=== PATIENT | male | born 1985 | race Caucasian/White ===

== ENCOUNTER 2025-03-14 08:26 | Emergency (ER) | payer SELFPAY ==
[2025-03-14 08:31] VITALS: BP 178/102; PULSE 85; RESP 16; TEMP 36.5; O2SAT 96; BMI 32.4
[2025-03-14 09:38] VITALS: BP 169/105; PULSE 80; RESP 16; O2SAT 97
--- NOTE | 2025-03-14 09:57 | ECG_ITS ---
Test Reason : lightheaded Blood Pressure : */* mmHG Vent. Rate : 79 BPM Atrial Rate : 79 BPM P-R Int : 178 ms QRS Dur : 102 ms QT Int : 366 ms P-R-T Axes : 39 22 38 degrees QTcB Int : 419 ms Normal sinus rhythm Nonspecific ST and T wave abnormality Abnormal ECG No previous ECGs available Referred By: Samir Díaz Electronically Signed By: TESHA MANCINI
--- OUTSIDE RECORDS SUMMARY | 2025-03-14 09:59 | XMS_ITS | Clinical Summary ---
Author Organization [employer] [facility] Address [address] [place] [address] Care Team Providers Care Interactive Media Marketing Strategist Name Role Phone Physician, No Pcp Primary Care Provider Unavaila ble Social History Tobacco Use Types Packs/Day Years Used Date Smoking Tobacco: Never Assessed Sex and Gender Information Value Date Recorded Sex Assigned at Not on file Legal Sex Male 7:41 PM EDT Gender Identity Not on file Sexual Orientation Not on file Plan of Treatment Health Maintenance Due Date Last Done Comments DTaP,Tdap,and Td Vaccines (1 - Tdap) 2004 Hepatitis B Vaccines (1 of 3 - 19+ 3-dose series) 2004 COVID-19 Vaccine (2023-2 5 season) 2024 Cholesterol Screening (Lipid Panel) 06/12/2024 HIV Screening 06/12/2024 Hepatitis C Screening 06/12/2024 Social Influencers of Health Screening 06/12/2024 Depression Screening 08/11/2024 Influenza Vaccine (#1) 2025 HIB Vaccines Aged Out No longer eligi ble based on patient's age to complete this topic HPV Vaccines Aged Out No longer eligi ble based on patient's age to complete this topic Hepatitis A Vaccines Aged Out No long er eligible based on patient's age to complete this topic IPV Vaccines Aged Out No longer eligi ble based on patient's age to complete this topic MMR Vaccines Aged Out No longer eligi ble based on patient's age to complete this topic Meningococcal ACWY Vaccine Aged Out N o longer eligible based on patient's age to complete this topic Meningococcal B Vaccine Aged Out No l onger eligible based on patient's age to complete this topic Pneumococcal Vaccine: Pediat rics (0 to 5 Years) and At-Risk Patients (6 to 49 Years) Aged Out No longer eligible b ased on patient's age to complete this topic RSV Immunization Patients Un carlton 20 months Aged Out No longer eligible b ased on patient's age to complete this topic Varicella Vaccines Aged Out No longer eligible based on patient's age to complete this topic Insurance Care Teams Interactive Media Marketing Strategist Relationship Specialty Start Date End Date Physician, No Pcp PCP - General 06/11/24
[2025-03-14 10:18] LABS: MANUAL DIFF FLAG NO
--- NOTE | 2025-03-14 10:18 | ED_ITS ---
HPI - General Adult General Chief complaint: General Medical Stated complaint: Light headed, rash on left side of body Time Seen by Provider: 03/14/25 09:23 Source: patient, RN notes reviewed and old records reviewed Mode of arrival: ambulatory Limitations: no limitations History of Present Illness ED Provider: Bre SARABIA narrative: 39-year-old male with past medical history significant for high blood pressure presents for evaluation of body aches, fevers, rash. The patient reports that he has had body aches, fatigue for about 2 weeks. He reports a rash that started about 5 days ago. The rashes to his groin on both sides and indicates the inguinal region. It does not involve the scrotum per his report. He also has a rash to his left forearm. The rash is very itchy. 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 One was on his leg and he does not believe it was imbedded however he did pull a tick off of his posterior scalp and he is unsure how long it was there Related Data Previous Rx's ?Medication ?Instructions ?Recorded doxycycline hyclate 100 mg tablet 100 mg PO BID #42 ta bs 03/14/25 hydrocortisone 2.5 % topical 1 appl topical BID #28.35 grams 03/14/25 ointment lisinopril 10 mg tablet 10 mg PO DAILY #30 tabs 12/03 Allergies Allergy/AdvReac Type Severity Reaction Status Date / Time No Known Allergies Allergy Verified 03/14/25 08:36 Review of Systems 2 Constitutional: Constitutional: Reports body ache(s), Reports chills, Reports fever(s), Denies frequent falls and Denies headache(s) Eyes: Eyes: Denies blurry vision ENT: Denies dizziness and Denies headache(s) Cardiovascular: Cardiovascular: Denies chest pain and Denies dyspnea on exertion Respiratory: Respiratory: Denies cough and Denies dyspnea on exertion Gastrointestinal: Gastrointestinal: Denies abdominal pain, Denies nausea and Denies vomiting Musculoskeletal: Musculoskeletal: Denies back pain, Reports arthralgias, Denies joint swelling and Denies limited range of motion Integumentary/Breasts: Skin/Breast: Denies erythema and Reports rash Neurologic: Denies dizziness, Denies frequent falls and Denies headache(s) Psychiatric: Psychiatric: Denies anxiety PMFSH Social History Social History Advance Directives: No Advance Directives Information Provided: Yes Physical Exam ED Vital Signs: Vital Signs - 24 hr 03/14/25 08:31 03/14/25 09:38 Temperature 97.7 F Pulse Rate 85 80 Respiratory Rate 16 16 Blood Pressure 178/102 H 169/105 H Pulse Oximetry 96 97 Oxygen Delivery Method Room Air Room Air BMI result Body Mass Index 32.4 Const General: healthy appearing, comfortable, no acute distress, alert and awake Nutritional Appearance: well nourished Orientation/consciousness: patient oriented x3 HENMT Head: Yes normocephalic and Yes atraumatic Eyes Eyelids: Yes eyelids normal Conjunctivae: conjunctivae normal Sclerae: sclerae normal Corneas: corneas normal Pupils: Equal, round and reactive pupils present EOM: EOMs intact bilaterally Neck Neck: Yes full ROM Resp Effort & Inspection: normal respiratory effort, able to speak in complete sentences and not labored GI Inspection: No distended Palpation (GI): Soft to palpation, not firm, nontender, no guarding and not rigid Skin Other: Erythematous maculopapular rash with excoriations to the dorsal surface of the left forearm, bilateral inguinal regions. No involvement of the scrotum or penis. General skin exam: elasticity normal Neuro General: patient oriented x3 Cranial nerves: Yes Equal, round and reactive pupils present and Yes Bilaterally intact EOM present Cognition (Neuro): normal cognition Extrem Other: Moving all extremities well without any obvious deformities Course Reevaluation(s) Reevaluation #1: Patient's EKG shows some nonspecific changes however there is no ST segment elevation AL. The patient denies any chest pain. These changes could be related to untreated hypertension. Plan to restart his antihypertensive regimen. Time: 10:50 Medical Decision Making Medical Decision Making MDM Narrative: 39-year-old male with past medical history significant for hypertension presents for evaluation of multiple complaints including body aches, fatigue, rash. He does spend frequent time outside and in the [place]. He has had ticks on him in the last couple of weeks. We will order a tick-borne panel including Lyme disease. I have a high suspicion the patient does have Lyme disease given the body aches, fatigue and fevers and chills. However the rash that he has on his arm and colitis not consistent with an erythema migrans. The rash is more consistent with a contact dermatitis and he is frequently in the [place] per his report. In his possible that he did encounter poison helena. Plan for basic labs, EKG. The patient is noted to be hypotensive at 169/105. He reports that he has been off of his antihypertensive medication for 2-3 months since relocating to the area and awaiting insurance. Pending his current workup, anticipate discharge with treatment for suspected Lyme disease, topical steroid for contact dermatitis and restarting antihypertensive therapy. Differential Diagnosis Differential Diagnoses: The differential diagnosis associated with the presentation includes Contact dermatitis Lyme disease Tick-borne illness Hypertension Acute rash Cellulitis Lab Data MDM Lab Attestation statement: I reviewed the patient's lab results. No leukocytosis or anemia. Normal platelet count. No significant electrolyte abnormalities. Mild elevation of AST and ALT which could be related to a viral illness or tick-borne disease. The patient will be covered with doxycycline. 03/14/25 10:13 03/14/25 10:13 Labs: Lab Results 03/14/25 Range/Units 10:13 WBC 6.1 (4.8-10.8) X10*3/uL RBC 5.67 (4.60-5.80) X10*6/uL Hgb 16.8 (14.0-18.0) g/dl Hct 48.0 (42.0-52.0) % MCV 84.7 (80.0-98.0) fL MCH 29.6 (27.0-33.0) pg MCHC 35.0 (31.0-36.0) g/dl RDW 13.1 (11.0-16.0) % Plt Count 169 (160-400) X10*3/uL MPV 10.5 (9.4-12.4) fL Immature Gran % (Auto) 0.8 H (0.0-0.4) % Neut % (Auto) 59.8 (45-73) % Lymph % (Auto) 27.7 (20-40) % [place] % (Auto) 7.3 (2-11) % Eos % (Auto) 3.4 (0-4) % Baso % (Auto) 1.0 (0-2) % Lymph # (Auto) 1.7 (1.2-4.9) X10*3/uL [place] # (Auto) 0.5 (0.1-1.2) X10*3/uL Eos # (Auto) 0.2 (0.0-0.4) X10*3/uL Baso # (Auto) 0.1 (0.0-0.2) X10*3/uL Abs Immat Gran (auto) 0.05 H (0.00-0.03) X10*3/uL Absolute Neuts (auto) 3.7 (2.0-8.3) x10*3/uL Absolute Nucleated RBC 0.000 (0.0-0.012) X10*3/uL Nucleated RBC % (auto) 0.0 (0.0-0.2) /100WBC Sodium 139 (135-145) mmol/L Potassium 4.1 (3.3-5.1) mmol/L Chloride 107 (96-108) mmol/L Carbon Dioxide 26 (22-29) mmol/L Anion Gap 10 L (12-20) BUN 12 (9-16) mg/dL Creatinine 1.00 (0.5-1.4) mg/dL Estim Creat Clear Calc 94.4 Estimated GFR > 60 Random Glucose 96 (60-115) mg/dL Calcium 9.3 (8.4-10.2) mg/dL Total Bilirubin 0.9 (0.0-1.0) mg/dL AST 54 H (5-37) U/L ALT 104 H (0-40) U/L Alkaline Phosphatase 100 (39-117) U/L Total Protein 7.8 (6.5-8.0) g/dL Albumin 4.5 (3.5-5.0) g/dL Influenza Type A (PCR) NEGATIVE (Negative) Influenza Type B (PCR) NEGATIVE (Negative) RSV RNA Qual (PCR) NEGATIVE (Negative) SARS-CoV-2 RNA (RT-PCR) NEGATIVE (Negative) Independent Interpretation I performed an independent interpretation of an: EKG (Normal sinus rhythm with a rate of [address] segment elevation AL. nondiagnostic EKG ) Discharge Plan Discharge Clinical Impression: Contact dermatitis, Arthralgia, Hypertension Patient Disposition: Home, Self-Care Instructions: Lyme Disease (ED), Contact Dermatitis (ED), Hypertension (ED) Additional Instructions: Your workup in the ER today was reassuring. I suspect that you may have Lyme disease and I recommend taking doxycycline twice daily for 3 weeks We will call you if the Lyme titer does result positive I recommend using hydrocortisone cream to your rash for suspected contact dermatitis or poison helena I recommend taking lisinopril for your high blood pressure Follow-up with your primary doctor when able, return for new or worsening symptoms Prescriptions: New doxycycline hyclate 100 mg tablet 100 mg PO BID Qty: 42 0RF hydrocortisone 2.5 % ointment 1 appl topical BID Qty: 28.35 0RF lisinopril 10 mg tablet 10 mg PO DAILY Qty: 30 0RF Print Language: Kiswahili
[2025-03-14 10:20] LABS: Hematocrit 48.0 % (42.0-52.0); Hemoglobin 16.8 g/dl (14.0-18.0); Imm Gran Abs Auto 0.05 X10*3/uL (0.00-0.03); Imm Gran Pct Auto 0.8 % (0.0-0.4); Lymphocytes Absolute Auto 1.7 X10*3/uL (1.2-4.9); Mean Corpuscular HGB Conc 35.0 g/dl (31.0-36.0); Mean Corpuscular Hemoglobin 29.6 pg (27.0-33.0); Mean Corpuscular Volume 84.7 fL (80.0-98.0); NRBC Abs Auto 0.000 X10*3/uL (0.0-0.012); NRBC Pct Auto 0.0 /100WBC (0.0-0.2); Platelet Count 169 X10*3/uL (160-400); Red Blood Count 5.67 X10*6/uL (4.60-5.80); White Blood Count 6.1 X10*3/uL (4.8-10.8)
[2025-03-14 10:33] LABS: Alanine Aminotransferase 104 U/L (0-40); Albumin Level 4.5 g/dL (3.5-5.0); Alkaline Phosphatase 100 U/L (39-117); Anion Gap 10 (12-20); Aspartate Amino Transferase 54 U/L (5-37); Blood Urea Nitrogen 12 mg/dL (9-16); Calcium 9.3 mg/dL (8.4-10.2); Carbon Dioxide 26 mmol/L (22-29); Chloride 107 mmol/L (96-108); Creatinine Clr Calc Pharmacy 94.4; Estimated Glomerular Filt Rate > 60; Potassium 4.1 mmol/L (3.3-5.1); Sodium 139 mmol/L (135-145); Total Protein 7.8 g/dL (6.5-8.0)
[2025-03-14 10:56] LABS: Resp Syncy Virus RNA Qual PCR NEGATIVE (Negative); SARS COV2 PCR INHOUSE NEGATIVE (Negative)
[2025-03-14 11:16] VITALS: BP 173/99; PULSE 73; RESP 12; O2SAT 96
[2025-03-14 11:17] LABS: Appearance Urine Clear; Glucose Urine UA Negative (Negative); PH 7.5 (5.0-9.0); Specific Gravity - Urine 1.015 (1.005-1.025)
[2025-03-14 11:44] VITALS: BP 173/99; PULSE 73; RESP 12; TEMP 36.7; O2SAT 96
[2025-03-15 21:39] LABS: Lyme Abs Screen <0.90 index
[2025-03-15 22:14] LABS: Lyme Disease DNA PCR NOT DETECTED (NOT DETECTED)
[2025-03-15 22:23] LABS: A. Phagocytphilium DNA,RT-PCR NOT DETECTED (NOT DETECTED); Babesia Microti DNA, RT-PCR NOT DETECTED (NOT DETECTED); Borrelia Miyamotoi,DNA RT-PCR NOT DETECTED (NOT DETECTED); E.Chaffeensis DNA RT-PCR NOT DETECTED (NOT DETECTED); Lyme(Borrelia ssp)DNA RT-PCR NOT DETECTED (NOT DETECTED)
== END 2025-03-14 11:45 | disposition home or self-care (01) ==
PROVIDERS: Physician Assistant; Emergency Provider Emergency Medicine Emergency Medical Services
DX: L25.9 Unspecified contact dermatitis, unspecified cause (principal); R21 Rash and other nonspecific skin eruption; I10 Essential (primary) hypertension; M25.59 Pain in other specified joint; Z03.818 Encounter for observation for suspected exposure to other biological agents ruled out
CPT/HCPCS: 80053; 81001; 85025; 86617; 86618; 87468; 87469; 87478; 87484; 87637; 87798; 93005; 99283; 99284

== ENCOUNTER → 2025-03-14 09:57 | Outpatient (BNV) | payer SELFPAY | PROVIDERS: Emergency Provider Emergency Medicine Emergency Medical Services; Visit Provider Internal Medicine | DX: R94.31 Abnormal electrocardiogram [ECG] [EKG] (principal); R42 Dizziness and giddiness | CPT/HCPCS: 93010 ==

== ENCOUNTER 2025-05-11 11:11 | Emergency (ER) | payer OTHER, SELFPAY ==
--- NOTE | ~2025-05-11 | CT_ITS ---
EXAMINATION: CT HEAD WITHOUT IV CONTRAST HISTORY: HTN. TECHNIQUE: Unenhanced helical CT of the head was performed per standard departmental protocol. Coronal and sagittal reformats of the head were also evaluated. One or more of the following techniques was used for dose reduction: Automated exposure control, adjustment of the mA and/or kV according to patient size, use of iterative reconstruction technique. DLP: 686 mGy-cm COMPARISON: There are no prior studies available for comparison. FINDINGS: BRAIN: The brain parenchyma is unremarkable. There is normal muñoz/white differentiation. The ventricular system is normal in size and configuration. There is no mass effect or midline shift. No intra- or extra-axial fluid collections are identified. SINUSES: There is a small polyp versus mucous retention cyst in the left maxillary sinus. The mastoid air cells and middle ear cavities are well pneumatized. ORBITS: The visualized orbits are unremarkable. BONES/SOFT TISSUES: The extracranial soft tissues are unremarkable. The calvarium is intact. No suspicious lytic or sclerotic lesions. CT/CT head/brain wo IV con IMPRESSION: Unremarkable unenhanced head CT. Electronically signed by: Indra Morel MD 05/11/2025 12:35 PM EDT
[2025-05-11 11:39] VITALS: BP 199/116; PULSE 81; RESP 18; TEMP 36.7; O2SAT 97; BMI 32.3
--- NOTE | 2025-05-11 11:41 | ED.GENADULT ---
HPI - General Adult General Chief complaint: Chest Pain Stated complaint: High BP, blurred vision, heart palpitations Time Seen by Provider: 05/11/25 13:22 History of Present Illness ED Provider: Joselin SARABIA narrative: The patient is a 39-year-old male who was recently started on lisinopril at the emergency room here almost 2 months ago because of hypertension. He has been without insurance for awhile and has not yet established a new primary care doctor although he has an upcoming appointment. His also believes that he has sleep apnea. She has believe this for over 2 years apparently. He snores a lot. This morning at around 03:00 1 of his children came into their bedroom and made a lot of noise. The was concerned because the patient did not wake up even though there was a lot of noise. She then jostled him to wake him up and even then it took awhile for her to wake him. During all this time she was afraid that he was not breathing. However when he woke up he awoke to a normal mental status. After this episode he went back to sleep and woke up at around 07:00. He then went to work but when he left for work he said he was feeling very tired. His was concerned that the patient had said he was going to leave work after getting to work and call out sick but he did not come home. Later the called him and told him he should leave. He left and came home and she brought him to the emergency room for evaluation of this episode. He has also had a sense of some blurry vision and some mild chest discomfort. Related Data Previous Rx's ?Medication ?Instructions ?Recorded doxycycline hyclate 100 mg tablet 100 mg PO BID #42 tabs 03/14/25 hydrocortisone 2.5 % topical 1 appl topical BID #28.35 grams 03/14/25 ointment lisinopril 10 mg tablet 10 mg PO DAILY #30 tabs 03/14/25 lisinopril 20 mg tablet 20 mg PO DAILY #30 tabs 05/11/25 Allergies Allergy/AdvReac Type Severity Reaction Status Date / Time No Known Allergies Allergy Verified 05/11/25 11:44 Review of Systems Review of Systems: Yes all other systems are reviewed and are negative PMFSH Social History Social History Advance Directives: No Advance Directives Information Provided: Yes Do you have a plan to hurt others: No Plan Physical Exam ED Vital Signs: Vital Signs - 24 hr 05/11/25 11:39 05/11/25 13:37 05/11/25 14:45 Temperature 98.1 F 98.2 F 98.1 F Pulse Rate 81 86 78 Respiratory Rate 18 18 14 Blood Pressure 199/116 H 159/105 H 152/103 H Pulse Oximetry 97 96 96 Oxygen Delivery Method Room Air Room Air Room Air 05/11/25 15:34 Temperature 98.1 F Pulse Rate 78 Respiratory Rate 14 Blood Pressure 152/103 H Pulse Oximetry 96 Oxygen Delivery Method Room Air BMI result Body Mass Index 32.3 Const Other: The patient is a 39-year-old male who was awake and alert. He was pleasant and cooperative. He did not seem in obvious distress. HENMT Other: Face is symmetrical, tongue is midline. Mucous membranes moist. Eyes Other: Pupils are round, equal, and reactive to light, extraocular movements are intact, funduscopic exam is unremarkable, conjunctivae are clear, visual torres are intact to confrontation. Neck Neck: Yes normal visual inspection, Yes full ROM, Yes no lymphadenopathy and Yes no meningeal signs Resp Effort & Inspection: normal respiratory effort Auscultation: clear to auscultation bilaterally Cardio Rate: regular rate Rhythm: regular rhythm Heart sounds: S1 normal heart sound present and S2 normal heart sound present GI Other: Abdomen is soft and nontender Skin Other: The skin is dry and unremarkable Neuro Other: The patient is awake and alert with a normal mental status. Pupils are round, equal, and reactive to light, extraocular movements are intact, funduscopic exam is unremarkable, visual torres are intact to confrontation, face is symmetrical, tongue is midline, speech is clear and appropriate, strength is 5/5 in all extremities, no pronator drift. Finger-nose is normal. Heel-coburn is normal. Gait is steady. NIH stroke scale is 0. General: no meningeal signs Extrem Other: There is no calf swelling or tenderness. No asymmetry. No peripheral edema. Course Course Course Narrative: This is an RME: Additional HPI, ROS, PE not included below will be deferred to primary provider. RME assessment and note performed by: Eula Valdez PA-C This is a 44-lsbb-hoh-male, with a hx HTN, who presents to the ER with a complaint of CP, blurred vision since this morning. BP elevated at 199/116. He has been compliant on his medications, may have missed a dose on Friday. Patient is neurologically intact, no focal deficits on examination. Plan: Labs, EKG, CT head Medical Decision Making Medical Decision Making [facility] Narrative: The patient is a 39-year-old male who comes to the emergency room because of an episode that occurred at around 03:00 this morning while he was sleeping. His has felt for a long time that he might have sleep apnea. This morning there was a rather dramatic episode in which she felt it was extremely difficult to wake him up but ultimately she was able to wake him up and he has a normal mental status. He was able to go back to sleep and then went to work this morning. His felt that the event this morning was significant enough that the patient really should not be working and that he should be seen by a doctor and so she encouraged him to leave work and come to the hospital. The patient has been on lisinopril for hypertension. He was seen here in early March and had hypertension and was started in the emergency room on 10 mg of lisinopril daily. He has not yet had a PCP appointment to renew this prescription. He says he has a few tablets left which would suggest he has taken the medication somewhat intermittently. His neurological exam today is normal. I do not think there are any findings of a stroke. Head CT has been ordered at triage because of his hypertension at his complaints of blurry vision and tingling in his hands. His NIH stroke scale is 0. My suspicion for a stroke in his the patient is very low I do not think this presentation is suggestive of a stroke. The patient was in the ER for awhile. He seemed to look well and seemed to feel well in the emergency department. His blood pressures were high but not markedly so. Clearly, based on his 's description of the event this morning, he will need an evaluation for possible sleep apnea but I do not think this is an indication for hospitalization today. He has a an appointment in 1-2 weeks with a new primary care doctor. He is encouraged to keep this appointment. In the meantime he may try propping himself up with pillows or using other anti snoring devices that might be available at a pharmacy. In addition I will send a new prescription for lisinopril at a slightly higher dose, 20 mg daily. He he should return if worse. Lab Data 05/11/25 12:08 05/11/25 12:08 Labs: Lab Results 05/11/25 Range/Units 12:08 WBC 6.0 (4.8-10.8) X10*3/uL RBC 5.82 H (4.60-5.80) X10*6/uL Hgb 16.9 (14.0-18.0) g/dl Hct 47.9 (42.0-52.0) % MCV 82.3 (80.0-98.0) fL MCH 29.0 (27.0-33.0) pg MCHC 35.3 (31.0-36.0) g/dl RDW 12.8 (11.0-16.0) % Plt Count 189 (160-400) X10*3/uL MPV 10.5 (9.4-12.4) fL Immature Gran % (Auto) 0.3 (0.0-0.4) % Neut % (Auto) 55.7 (45-73) % Lymph % (Auto) 32.3 (20-40) % [place] % (Auto) 7.3 (2-11) % Eos % (Auto) 3.2 (0-4) % Baso % (Auto) 1.2 (0-2) % Lymph # (Auto) 1.9 (1.2-4.9) X10*3/uL [place] # (Auto) 0.4 (0.1-1.2) X10*3/uL Eos # (Auto) 0.2 (0.0-0.4) X10*3/uL Baso # (Auto) 0.1 (0.0-0.2) X10*3/uL Abs Immat Gran (auto) 0.02 (0.00-0.03) X10*3/uL Absolute Neuts (auto) 3.4 (2.0-8.3) x10*3/uL Absolute Nucleated RBC 0.000 (0.0-0.012) X10*3/uL Nucleated RBC % (auto) 0.0 (0.0-0.2) /100WBC Sodium 139 (135-145) mmol/L Potassium 3.7 (3.3-5.1) mmol/L Chloride 108 (96-108) mmol/L Carbon Dioxide 22 (22-29) mmol/L Anion Gap 13 (12-20) BUN 10 (9-16) mg/dL Creatinine 0.93 (0.5-1.4) mg/dL Estim Creat Clear Calc 101.3 Estimated GFR > 60 Random Glucose 127 H (60-115) mg/dL Calcium 9.2 (8.4-10.2) mg/dL Magnesium 2.3 (1.6-2.6) mg/dL Total Bilirubin 0.5 (0.0-1.0) mg/dL Direct Bilirubin 0.1 (0.0-0.5) mg/dL AST 44 H (5-37) U/L ALT 83 H (0-40) U/L Alkaline Phosphatase 116 (39-117) U/L Troponin I High Sens < 2.7 (<3.5-35.0) ng/L Total Protein 7.9 (6.5-8.0) g/dL Albumin 4.6 (3.5-5.0) g/dL Independent Interpretation I performed an independent interpretation of an: EKG Interpretation: EKG at 12:02 shows normal sinus rhythm at 80 beats per minute. No significant changes from previous EKG. Discharge Plan Discharge Clinical Impression: Hypertension, Sleep apnea Patient Disposition: Home, Self-Care Additional Instructions: I have sent a new prescription for lisinopril to the [facility] pharmacy. I have increased the dose to 20 mg daily. Please plan on keeping your new patient appointment as scheduled. My hope is that you will be able to get referred for sleep apnea testing soon. In the meantime I would recommend trying to sleep more sitting up than you usually do. You may need to use extra pillows. Additionally a pharmacy may also cell some kind of device to help reduce snoring. This might be worth trying if it is not too expensive. Return to the emergency room if significantly worse. Prescriptions: New lisinopril 20 mg tablet 20 mg PO DAILY Qty: 30 2RF No Action doxycycline hyclate 100 mg tablet 100 mg PO BID Qty: 42 0RF hydrocortisone 2.5 % ointment 1 appl topical BID Qty: 28.35 0RF lisinopril 10 mg tablet 10 mg PO DAILY Qty: 30 0RF Referrals: [facility] [Provider Group, Primary Care] Stand Alone Forms: Work/School Release Interventions: ED Discharge Assessment Last Done: 05/11/25 15:34 Discharge Date/Time: 05/11/25 15:39 Print Language: Liberian
--- NOTE | 2025-05-11 11:42 | ECG_ITS ---
Test Reason : CP Blood Pressure : */* mmHG Vent. Rate : 80 BPM Atrial Rate : 80 BPM P-R Int : 176 ms QRS Dur : 102 ms QT Int : 352 ms P-R-T Axes : 13 18 48 degrees QTcB Int : 405 ms Normal sinus rhythm Moderate voltage criteria for LVH, may be normal variant ( R in aVL , Dominick product ) Nonspecific ST and T wave abnormality Abnormal ECG When compared with ECG of 14-Mar-2025 10:15, No significant change was found Referred By: Eula Valdez Electronically Signed By: TESHA MANCINI
[2025-05-11 12:12] LABS: MANUAL DIFF FLAG NO
[2025-05-11 12:13] LABS: Hematocrit 47.9 % (42.0-52.0); Hemoglobin 16.9 g/dl (14.0-18.0); Imm Gran Abs Auto 0.02 X10*3/uL (0.00-0.03); Imm Gran Pct Auto 0.3 % (0.0-0.4); Lymphocytes Absolute Auto 1.9 X10*3/uL (1.2-4.9); Mean Corpuscular HGB Conc 35.3 g/dl (31.0-36.0); Mean Corpuscular Hemoglobin 29.0 pg (27.0-33.0); Mean Corpuscular Volume 82.3 fL (80.0-98.0); NRBC Abs Auto 0.000 X10*3/uL (0.0-0.012); NRBC Pct Auto 0.0 /100WBC (0.0-0.2); Platelet Count 189 X10*3/uL (160-400); Red Blood Count 5.82 X10*6/uL (4.60-5.80); White Blood Count 6.0 X10*3/uL (4.8-10.8)
[2025-05-11 12:28] LABS: Alanine Aminotransferase 83 U/L (0-40); Albumin Level 4.6 g/dL (3.5-5.0); Alkaline Phosphatase 116 U/L (39-117); Anion Gap 13 (12-20); Aspartate Amino Transferase 44 U/L (5-37); Blood Urea Nitrogen 10 mg/dL (9-16); Calcium 9.2 mg/dL (8.4-10.2); Carbon Dioxide 22 mmol/L (22-29); Chloride 108 mmol/L (96-108); Creatinine Clr Calc Pharmacy 101.3; Estimated Glomerular Filt Rate > 60; Magnesium 2.3 mg/dL (1.6-2.6); Potassium 3.7 mmol/L (3.3-5.1); Sodium 139 mmol/L (135-145); Total Protein 7.9 g/dL (6.5-8.0)
[2025-05-11 12:37] LABS: Troponin-I High Sensitivity < 2.7 ng/L (<3.5-35.0)
[2025-05-11 13:37] VITALS: BP 159/105; PULSE 86; RESP 18; TEMP 36.8; O2SAT 96
--- NOTE | 2025-05-11 13:46 | PC.NURSE ---
Pt here w/ c/o chest tightness and blurry vision, now resolved but worsens w/ movement since this am. Pt denies h/a, nausea, sob, fevers/chills. Pt also denies unilateral weakness. Pt states he took his bp meds this am.
[2025-05-11 14:45] VITALS: BP 152/103; PULSE 78; RESP 14; TEMP 36.7; O2SAT 96
[2025-05-11 15:34] VITALS: BP 152/103; PULSE 78; RESP 14; TEMP 36.7; O2SAT 96
== END 2025-05-11 15:39 | disposition home or self-care (01) ==
PROVIDERS: Physician Assistant Medical; Emergency Provider Emergency Medicine
DX: I10 Essential (primary) hypertension (principal); G47.30 Sleep apnea, unspecified; R06.83 Snoring; R07.89 Other chest pain; H53.8 Other visual disturbances; Z79.899 Other long term (current) drug therapy
CPT/HCPCS: 36415; 70450; 80048; 80076; 83735; 84484; 85025; 93005; 99284

== ENCOUNTER → 2025-05-11 11:42 | Outpatient (BNV) | payer OTHER, SELFPAY | PROVIDERS: Visit Provider Radiology Diagnostic Radiology | DX: I10 Essential (primary) hypertension (principal) | CPT/HCPCS: 70450 ==

== ENCOUNTER → 2025-05-11 11:42 | Outpatient (BNV) | payer OTHER, SELFPAY | PROVIDERS: Emergency Provider Emergency Medicine; Visit Provider Internal Medicine | DX: R94.31 Abnormal electrocardiogram [ECG] [EKG] (principal); R07.9 Chest pain, unspecified | CPT/HCPCS: 93010 ==